=== PATIENT | male | born 1980 | race Caucasian/White ===

== ENCOUNTER 2016-12-02 08:56 | Emergency (ER) | payer SELFPAY ==
[2016-12-02] MEDS ORDERED: Ketorolac INJ* 60 MG/2 ML VIAL IM ONE (09:43)
[2016-12-02] MEDS ORDERED: Dexamethasone IV* 4 MG/ML 1 ML (4 MG) IM ONE (09:43)
[2016-12-02] MEDS ORDERED: oxyCODONE/Acetamin 5/325 MG* TAB PO ONE (09:45)
--- NOTE | 2016-12-02 09:47 | ED ---
Back Pain - HPI Summary HPI Summary: 36 male presents with complaints of lower back pain that is worse on the right side and began this morning upon waking up, 12/02/16. Patient states he has chronic back pain that he has suffered from for the past 15 years due to a back injury. States he had 3 slipped discs of L4,L5 and S1 15 years ago. Since then he deal with back pain that typically is about a 4-5/10. However after straining his back, working with heavy equipment yesterday he woke up with pain that is about a 8/10. Patient has not taken any medication at home for this pain. He does not like taking pain medication. Denies abdominal pain, numbness/ tingling, loss of ROM, saddle anesthesia, bladder/bowel incontinence and urinary symptoms. Describes the pain as sharp and shooting that worsens with specific movements. Sitting and having legs towards chest helps the pain. Pain radiates down right leg at times, he does although have chronic radiation of pain down right leg. Denies chest pain and difficulty breathing. No PMHx. Is able to bear weight and is able to walk slowly. No recent trauma or injury besides straining yesterday and previous injury 15 years ago. - History of Current Complaint Chief Complaint: EDBackInjuryPain Stated Complaint: BACK PAIN Time Seen by Provider: 12/02/16 09:16 Hx Obtained From: Patient Onset/Duration: Sudden Onset, Lasting Hours, Worse Since Onset/Duration: Started Hours Ago, Traumatic - straining himself at work, acute increasing pain on top of chronic pain Timing: Constant, Intermittent - with worsening pain with movement Back Pain Location: Is Discrete @ - L4-S1 region Severity Initially: Mild Severity Currently: Moderate Pain Intensity: 9 Pain Scale Used: 0-10 Numeric Character: Sharp, Aching, Spasmodic, Stiffness Aggravating Symptom(s): Movement, Lifting, Walking Alleviating Symptom(s): Rest, Position Associated Signs And Symptoms: Negative: Swelling, Redness, Bruising, Weakness, Numbness, Tingling, Bladder Incontinence, Bowel Incontinence - Risk Factors AAA Risk Factors: Negative TAD Risk Factors: Negative Cauda Equina Risk Factors: Negative Epidural Abscess Risk Factors: Negative - Allergies/Home Medications Allergies/Adverse Reactions: Allergies Allergy/AdvReac Type Severity Reaction Status Date / Time No Known Allergies Allergy Verified 12/02/16 09:03 PMH/Surg Hx/FS Hx/Imm Hx Endocrine/Hematology History: Denies: Hx Diabetes, Hx Thyroid Disease Cardiovascular History: Denies: Hx Hypertension Respiratory History: Denies: Hx Asthma, Hx Chronic Obstructive Pulmonary Disease (COPD) GI History: Denies: Hx Ulcer Musculoskeletal History: Reports: Hx Back Problems - Surgical History Surgery Procedure, Year, and Place: LEFT KNEE SURGERY - Immunization History Immunizations Up to Date: Yes Infectious Disease History: No Infectious Disease History: Denies: Hx Hepatitis, Hx Human Immunodeficiency Virus (HIV), Traveled Outside the [place] in Last 30 Days - Family History Known Family History: Positive: None - Social History Alcohol Use: None Substance Use Type: Reports: Marijuana Substance Use Comment - Amount & Last Used: "every now and then" Smoking Status (MU): Current Every Day Smoker Type: Cigarettes Amount Used/How Often: 1 PPD Review of Systems Constitutional: Negative Cardiovascular: Negative Respiratory: Negative Gastrointestinal: Negative Genitourinary: Negative Positive: Arthralgia, Myalgia - lower back Skin: Negative Neurological: Negative Psychological: Normal All Other Systems Reviewed And Are Negative: Yes Physical Exam Triage Information Reviewed: Yes Vital Signs On Initial Exam: Initial Vitals Temp Pulse Resp BP Pulse Ox 97.6 F 86 17 150/84 99 12/02/16 08:57 12/02/16 08:57 12/02/16 08:57 12/02/16 08:57 12/02/16 08:57 recommend follow up with PCP for HTN to be re-checked, although patient is currently experiencing pain. Vital Signs Reviewed: Yes Appearance: Positive: Well-Appearing, Well-Nourished, Pain Distress - mild, laying in stretcher Skin: Positive: Warm, Skin Color Reflects Adequate Perfusion, Dry, Other - no erythema, edema, obvious deformity or ecchymosis. no step off or crepitus Head/Face: Positive: Normal Head/Face Inspection Eyes: Positive: Conjunctiva Clear ENT: Positive: Normal ENT inspection, Hearing grossly normal Neck: Positive: Supple, Nontender Respiratory/Lung Sounds: Positive: Clear to Auscultation, Breath Sounds Present Cardiovascular: Positive: Normal, RRR, Pulses are Symmetrical in both Upper and Lower Extremities - 2+ pedal bilateral. Negative: Leg Edema Left, Leg Edema Right Abdomen Description: Positive: Nontender, No Organomegaly, Soft. Negative: Bruit, CVA Tenderness (R), CVA Tenderness (L) Bowel Sounds: Positive: Present Musculoskeletal: Positive: Normal, Strength/ROM Intact - however causes pain, right LE more than left. sensation and skin intact. ROM intact although he has to move slowly and it does cause him pain, Pain @ - on palpation of L4-S1 of spine. Negative: Interruption @, Marcellus Sign Left, Edema Left, Edema Right Neurological: Positive: Normal, Sensory/Motor Intact - sensation intact, Alert, Oriented to Person Place, Time, CN Intact II-III, Reflexes Intact, NV Bundle Intact Distally, Normal Gait - walks slowly, Facial Symmetry, Speech Normal Psychiatric: Positive: Normal Diagnostics - Vital Signs Vital Signs Temp Pulse Resp BP Pulse Ox 12/02/16 09:01 97.6 F 89 17 150/84 99 12/02/16 08:57 97.6 F 86 17 150/84 99 - Laboratory Lab Statement: Any lab studies that have been ordered have been reviewed, and results considered in the medical decision making process. - Radiology lumbarsacral spine Xray Interpretation: No Acute Changes - The vertebral bodies appear normal in height. No fracture is noted. Disc spaces all well-preserved. Pedicles appear intact. Radiology Interpretation Completed By: Radiologist Re-Evaluation - Re-Evaluation First Eval Re-Evaluation Time: 11:05 Change: Improved - patient feeling better, agrees with plan and ready to be d/c Back Pain Course/Dx - Course Course Of Treatment: x-ray obtained and negative. due to pt PE findings and history no concern for cauda equina, epidural abscess or AAA at this time. dexamethasone and toradol IM given in ED. felt better. sent home with oral pain management although patient states he does not take them often. prescribed ibuprofen, muscle relaxer and short course prednisone to take at home. heat/ice , rest and follow up. follow up with pcp for HTN. - Diagnoses Differential Diagnosis/HQI/PQRI: Positive: Arthritis, Cauda Equina Syndrome, Fracture, Herniated Disc, Strain, Sprain Provider Diagnoses: Strain, lumbosacral, Chronic back pain Discharge - Discharge Plan Condition: Stable Disposition: HOME Prescriptions: Cyclobenzaprine TAB* [Flexeril 10 MG TAB*] 10 mg PO BID PRN #30 tab PRN Reason: Spasms Ibuprofen TAB* [Motrin TAB* 800 MG] 800 mg PO Q6H PRN #50 tab PRN Reason: Pain predniSONE TAB* [Deltasone TAB*] 20 mg PO DAILY #2 tab Patient Education Materials: Low Back Strain (ED), Lower Back Exercises (ED) Forms: *Gen. Provider Communication Referrals: Mick Ambrose MD [Primary Care Provider] - Additional Instructions: Take prescribed medication as directed to help with pain and inflammation. Take medication with food. Do not drive while taking muscle relaxer or narcotics. Heat your back several times daily. Rest and refrain from strenuous activity. Use pain as your guide. If your symptoms worsen, do not improve or new symptoms develop please seek medical attention. Follow up with your primary care provider. Recommend seeing previous doctor to receive injections. If your symptoms worsen such as loss of bladder/bowel control, numbness and tingling in lower legs or in between thighs, weakness of LE or increasing pain please seek medical attention immediately.
--- NOTE | 2016-12-02 10:22 | RAD ---
Indication: Back pain. 5 views of lumbar spine reviewed. The vertebral bodies appear normal in height. No fracture is noted. Disc spaces all well-preserved. Pedicles appear intact. IMPRESSION: No fracture of the lumbar spine is present.
[2016-12-02] MEDS ORDERED: Dexamethasone IV* 4 MG/ML 1 ML (4 MG) ONE (10:36)
[2016-12-02 11:10] VITALS: BP 113/64
== END 2016-12-02 11:08 | disposition home or self-care (01) ==
LOC: ED 08:56
DX: S39.012A Strain of muscle, fascia and tendon of lower back, initial encounter (principal); G89.29 Other chronic pain; F17.210 Nicotine dependence, cigarettes, uncomplicated; I10 Essential (primary) hypertension; X58.XXXA Exposure to other specified factors, initial encounter; Y92.9 Unspecified place or not applicable
CPT/HCPCS: 72110; 99282; A9270-GY; J1100; J1885

== ENCOUNTER 2017-03-16 10:39 | Emergency (ER) | payer SELFPAY ==
[2017-03-16] MEDS ORDERED: Acetaminop/Codeine 30 MG TAB* 1 TAB (300 MG/30 MG) PO ONE (11:53)
[2017-03-16] MEDS ORDERED: Ibuprofen TAB* 600 MG PO ONE (11:55)
--- NOTE | 2017-03-16 13:05 | ED ---
Skin Complaint - HPI Summary HPI Summary: Patient presents with "lump" to the right upper groin area just inferior to the inguinal canal. The lump has been present for 1 year, but has never had pain until 2 days ago. Now presenting with pain. No discoloration. On palpation, there is a 2x2 mass which is exquisitely painful on palpation. The pain does not radiate and he denies N/V/C/D. - History of Current Complaint Chief Complaint: EDGeneral Time Seen by Provider: 03/16/17 10:50 Stated Complaint: RT LEG/GROIN PAIN Hx Obtained From: Patient Onset/Duration: Started Hours Ago Skin Exposure Onset/Duration: Hours Ago Timing: Constant Onset Severity: Moderate Current Severity: Moderate Pain Intensity: 10 Pain Scale Used: 0-10 Numeric Skin Location: Leg Aggravating Symptom(s): Nothing Alleviating Symptom(s): Nothing Associated Signs & Symptoms: Negative Related History: Trauma - Allergy/Home Medications Allergies/Adverse Reactions: Allergies Allergy/AdvReac Type Severity Reaction Status Date / Time No Known Allergies Allergy Verified 12/02/16 09:03 PMH/Surg Hx/FS Hx/Imm Hx Previously Healthy: Yes Endocrine/Hematology History: Denies: Hx Diabetes, Hx Thyroid Disease Cardiovascular History: Denies: Hx Hypertension Respiratory History: Denies: Hx Asthma, Hx Chronic Obstructive Pulmonary Disease (COPD) GI History: Denies: Hx Ulcer Musculoskeletal History: Reports: Hx Back Problems - Surgical History Surgery Procedure, Year, and Place: LEFT KNEE SURGERY - Immunization History Hx Pertussis Vaccination: No Immunizations Up to Date: Unable to Obtain/Confirm Infectious Disease History: Denies: Hx Hepatitis, Hx Human Immunodeficiency Virus (HIV), Traveled Outside the in Last 30 Days - Family History Known Family History: Positive: None - Social History Occupation: Employed Full-time Lives: With Family Alcohol Use: None Hx Substance Use: Yes Substance Use Type: Reports: Marijuana Substance Use Comment - Amount & Last Used: "every now and then" Smoking Status (MU): Current Every Day Smoker Type: Cigarettes Amount Used/How Often: 1 PPD Review of Systems Constitutional: Negative Eyes: Negative Cardiovascular: Negative Respiratory: Negative Gastrointestinal: Negative Positive: no symptoms reported, see HPI Positive: Other - palpable mass to the inferior right groin with pain Neurological: Negative Psychological: Normal All Other Systems Reviewed And Are Negative: Yes Physical Exam Triage Information Reviewed: Yes Vital Signs On Initial Exam: Initial Vitals Temp Pulse Resp BP Pulse Ox 98.6 F 77 18 125/65 97 03/16/17 10:43 03/16/17 10:43 03/16/17 10:43 03/16/17 10:43 03/16/17 10:43 Vital Signs Reviewed: Yes Appearance: Positive: Well-Appearing, Well-Nourished Skin: Positive: Warm, Skin Color Reflects Adequate Perfusion, Other - palpable mass to the inferior right groin with pain Head/Face: Positive: Normal Head/Face Inspection Eyes: Positive: Normal, EOMI, TIMBO, Conjunctiva Clear Neck: Positive: Supple, Nontender, No Lymphadenopathy Respiratory/Lung Sounds: Positive: Clear to Auscultation, Breath Sounds Present Cardiovascular: Positive: Normal, RRR, Pulses are Symmetrical in both Upper and Lower Extremities Musculoskeletal: Positive: Normal, Strength/ROM Intact Neurological: Positive: Sensory/Motor Intact, Alert, Oriented to Person Place, Time Psychiatric: Positive: Normal Diagnostics - Vital Signs Vital Signs Temp Pulse Resp BP Pulse Ox 03/16/17 10:43 98.6 F 77 18 125/65 97 - Laboratory Lab Statement: Any lab studies that have been ordered have been reviewed, and results considered in the medical decision making process. Course/Dx - Course Course Of Treatment: palpable mass to the inferior right groin with pain x 1 year without any pain until 2 days ago. US shows: differentiating from tissue collection or old blood products from a hematoma. Patient encouraged warm compresses and referrals for surgery given. - Differential Diagnoses - Skin Complaint Differential Diagnoses: Other - mass, inguinal hernia, hematoma, soft tissue, lipoma - Diagnoses Provider Diagnoses: Soft tissue mass Discharge - Discharge Plan Condition: Stable Disposition: HOME Patient Education Materials: Soft Tissue Mass (ED) Referrals: Ag Villareal MD [Medical Doctor] - Mick Ambrose MD [Primary Care Provider] - Salomon Cruz MD [Medical Doctor] - Additional Instructions: Follow up with surgery as soon as possible Ibuprofen 600mg three times daily Warm compresses to the area daily Images - Images Full Body (No Head): 1 - palpable mass
--- NOTE | 2017-03-16 13:35 | RAD ---
INDICATION: Right thigh "lump" and became painful after a child jumped on his leg COMPARISON: None TECHNIQUE: Real time ultrasound images of the right anterior thigh were acquired with hawk scale and Doppler color flow imaging. FINDINGS: Overlying the musculature of the right thigh subcutaneous tissue there is a heterogeneous structure measuring 4.8 cm in the cephalocaudal projection and 1.6 x 3.5 cm in the axial plane. There is a small amount of vascularity around the periphery. IMPRESSION: Heterogeneous subcutaneous collection with peripheral vascularity corresponding to the patient's painful and palpable lump. Differential includes soft tissue mass or old blood products from hematoma.
[2017-03-16 14:15] VITALS: BP 133/75
== END 2017-03-16 14:15 | disposition home or self-care (01) ==
LOC: ED 10:39
DX: R22.41 Localized swelling, mass and lump, right lower limb (principal); M79.651 Pain in right thigh; F17.210 Nicotine dependence, cigarettes, uncomplicated
CPT/HCPCS: 99281; A9270-GY

== ENCOUNTER 2017-04-28 13:27 | Emergency (ER) | payer MEDICAID, OTHER ==
[2017-04-28] MEDS ORDERED: predniSONE TAB* 20 MG PO ONE (13:53)
[2017-04-28] MEDS ORDERED: Albuterol/Ipratropium NEB.SOL* Albuterol 2.5 MG/Ipratropium 0.5 MG 3 ML INH ONE (13:53)
[2017-04-28 15:09] VITALS: BP 129/67
--- NOTE | 2017-05-03 12:00 | ED ---
More Engle Alfonso, scribed for Donald Weiss MD on 04/28/17 at 1351 . Complex/Multi-Sys Presentation - HPI Summary HPI Summary: This patient is a 37 year old M presenting to [facility] with a chief complaint of dyspnea since 0800 this morning. He states he was cleaning black mold earlier today but was wearing a mask good for mold. The patient rates the pain 0/10 in severity. Symptoms alleviated by nothing. Patient reports SOB, and productive cough (hawk phlegm), and mid sternal CP. Patient denies fever, chills , and diaphoresis. Tobacco abuse disorder. - History Of Current Complaint Chief Complaint: EDShortnessOfBreath Time Seen by Provider: 04/28/17 13:46 Hx Obtained From: Patient Onset/Duration: Sudden Onset, Lasting Hours - 0800 this morning, Still Present Timing: Constant Severity Currently: Moderate Severity Initially: Moderate Alleviating Factor(s): Nothing Associated Signs And Symptoms: Positive: Other - SOB, and productive cough ( hawk phlegm), and mid sternal CP. Patient denies fever, chills, and diaphoresis - Allergies/Home Medications Allergies/Adverse Reactions: Allergies Allergy/AdvReac Type Severity Reaction Status Date / Time No Known Allergies Allergy Verified 03/24/17 12:47 PMH/Surg Hx/FS Hx/Imm Hx Endocrine/Hematology History: Denies: Hx Diabetes, Hx Thyroid Disease Cardiovascular History: Denies: Hx Hypertension, Hx Pacemaker/ICD Respiratory History: Denies: Hx Asthma, Hx Chronic Obstructive Pulmonary Disease (COPD) GI History: Denies: Hx Ulcer History: Denies: Hx Renal Disease Musculoskeletal History: Reports: Hx Back Problems Sensory History: Denies: Hx Hearing Aid Psychiatric History: Denies: Hx Panic Disorder - Surgical History Surgery Procedure, Year, and Place: LEFT KNEE SURGERY Infectious Disease History: Denies: Hx Hepatitis, Hx Human Immunodeficiency Virus (HIV), Traveled Outside the [place] in Last 30 Days - Family History Known Family History: Positive: Cardiac Disease - Social History Alcohol Use: None Hx Substance Use: Yes Substance Use Type: Reports: Marijuana Substance Use Comment - Amount & Last Used: "every now and then" Smoking Status (MU): Current Every Day Smoker Type: Cigarettes Amount Used/How Often: 1 PPD Review of Systems Negative: Fever, Chills, Skin Diaphoresis Negative: Erythema Negative: Sore Throat Positive: Chest Pain Positive: Shortness Of Breath, Cough, Other - dyspnea Negative: Abdominal Pain, Vomiting, Nausea Negative: dysuria, hematuria Negative: Myalgia, Edema Negative: Rash Neurological: Other - Negative dizziness. All Other Systems Reviewed And Are Negative: Yes Physical Exam Triage Information Reviewed: Yes Vital Signs On Initial Exam: Initial Vitals Temp Pulse Resp BP Pulse Ox 97.7 F 88 16 132/83 100 04/28/17 13:30 04/28/17 13:30 04/28/17 13:30 04/28/17 13:30 04/28/17 13:30 Vital Signs Reviewed: Yes Appearance: Positive: Well-Appearing, No Pain Distress, Well-Nourished Skin: Positive: Warm, Dry Head/Face: Positive: Normal Head/Face Inspection Eyes: Positive: Conjunctiva Clear ENT: Positive: Normal ENT inspection Neck: Positive: Other: - Musculoskeletal ROM normal neck. (-) JVD, (-) Stridor, (-) Tracheal deviation Lymph: (-) Cervical adenopathy Respiratory/Lung Sounds: Positive: Other - Effort normal. Diminished breath sounds. (-) Respiratory distress, (-) Wheezes, (-) Rales Cardiovascular: Positive: Other - Rhythm regular, rate normal, Heart sounds normal; Intact distal pulses; The pedal pulses are 2+ and symmetric. Radial pulses are 2+ and symmetric. (-) Murmur Abdomen Description: Positive: Other: - Soft, (-) Tenderness, (-) Distension, (- ) Guarding, (-) Rebound Musculoskeletal: Negative: Edema Left, Edema Right Neurological: Positive: Alert, Oriented to Person Place, Time Psychiatric: Positive: Affect/Mood Appropriate Diagnostics - Vital Signs Vital Signs Temp Pulse Resp BP Pulse Ox 04/28/17 13:30 97.7 F 88 16 132/83 100 - Laboratory Lab Statement: Any lab studies that have been ordered have been reviewed, and results considered in the medical decision making process. Re-Evaluation - Re-Evaluation First Eval Re-Evaluation Time: 14:45 Change: Improved Comment: Patient reports his SOB and chest pressure have resolved with treatment. Complex Multi-Symp Course/Dx Assessment/Plan: This patient is a 37 year old M presenting to [facility] with a chief complaint of dyspnea since 0800 this morning. He states he was cleaning black mold earlier today but was wearing a mask good for mold. The patient rates the pain 0/10 in severity. Symptoms alleviated by nothing. Patient reports SOB, and productive cough (hawk phlegm), and mid sternal CP. Patient denies fever, chills, and diaphoresis. Tobacco abuse disorder. In the ED course the patient was given Duoneb and prednisone. Patient reports his SOB and chest pressure have resolved with treatment. Patient will be _discharged with follow up from PCP. The patient is agreeable with this plan. - Diagnoses Provider Diagnoses: Bronchitis Discharge - Discharge Plan Condition: Stable Disposition: HOME Patient Education Materials: Acute Bronchitis (ED) Forms: *Work Release Referrals: Mick Ambrose MD [Primary Care Provider] - Additional Instructions: RETURN TO THE EMERGENCY DEPARTMENT FOR CHANGING OR WORSENING SYMPTOMS. The documentation as recorded by the More lundy Alfonso accurately reflects the service I personally performed and the decisions made by Abhishek scott Jerry, MD.
== END 2017-04-28 15:10 | disposition home or self-care (01) ==
LOC: ED 13:27
DX: J40 Bronchitis, not specified as acute or chronic (principal); F17.210 Nicotine dependence, cigarettes, uncomplicated
CPT/HCPCS: 94640; 99281; A9270-GY; J7512

== ENCOUNTER 2017-04-30 07:46 | Emergency (ER) | payer OTHER ==
[2017-04-30] MEDS ORDERED: NS 0.9% 1000 ML* 1,000 ML IV ONE (09:13)
[2017-04-30] MEDS ORDERED: methylPREDNISolone 125 MG* 2 ML VIAL IV ONE (09:13)
[2017-04-30] MEDS ORDERED: Albuterol 2.5 MG/3 ML NEB.SOL* (0.083%) INH ONE (09:13)
[2017-04-30 09:49] LABS: Hematocrit 39 % (42-52); Hemoglobin 13.2 g/dl (14.0-18.0); Mean Corpuscular HGB Conc 34 g/dl (31-36); Mean Corpuscular Hemoglobin 30 pg (27-31); Mean Corpuscular Volume 88 fL (80-94); Mean Platelet Volume 9 um3 (7.4-10.4); Red Blood Count 4.46 10^6/ul (4.0-5.4); Red Cell Distribution Width 14 % (10.5-15); White Blood Count 7.5 10^3/ul (3.5-10.8)
[2017-04-30 10:06] LABS: BUN/Creatinine Ratio 11.6 (8-20); C Reactive Protein 1.57 mg/L (< 5.00); Calcium 8.8 mg/dL (8.6-10.3); EGFR African American 115.4 (>60); EGFR Non-African American 89.7 (>60); Globulin 2.7 g/dL (2-4); Potassium 3.9 mmol/L (3.5-5.0); Total Bilirubin 0.4 mg/dL (0.2-1.0); Total Protein 6.7 g/dL (6.4-8.9)
--- NOTE | 2017-04-30 10:07 | RAD ---
INDICATION: Shortness of breath, chest pain and cough. COMPARISON: Comparison is made with a prior chest x-ray study from [place] [id number] 2011. TECHNIQUE: Dual-energy PA and lateral views of the chest were obtained. FINDINGS: The heart is within normal limits in size. Mediastinal and hilar contours appear within normal limits. The lungs are clear. No pleural effusion is present. IMPRESSION: NO EVIDENCE FOR ACTIVE CARDIOPULMONARY DISEASE.
[2017-04-30 11:49] LABS: Urine Bacteria Absent (Absent); Urine Bilirubin Negative (Negative); Urine Glucose Negative (Negative); Urine Nitrite Negative (Negative)
[2017-04-30 13:00] VITALS: BP 120/63
--- NOTE | 2017-04-30 13:46 | ED ---
More Engle Alfonso, scribed for Marie Neff MD on 04/30/17 at 0849 . Shortness of Breath - HPI Summary HPI Summary: This patient is a 37 year old M presenting to [facility] with a chief complaint of SOB since two days ago. The SOB is worse since this morning. He reports a diagnosis of bronchitis two days ago 04/28/17 in the ED for which he was prescribed prednisone and an inhaler, after being treated with a duoneb and prednisone in the ED. He states he is using his inhaler. Has contintued exposure to the black mold, but wears a mask. Symptoms aggravated by exertion. Symptoms alleviated by nothing. Patient reports dizziness, nonproductive cough, CP (tightness pain 4/10). Patient denies fever. Tobacco abuse disorder. 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 - History of Current Complaint Chief Complaint: EDShortnessOfBreath Hx Obtained From: Patient, Medical Records Onset/Duration: Sudden Onset, Lasting Days - 2, Worse Since - today Timing: Constant Current Severity: Moderate Dyspnea At: Rest Aggrevating Factors: Allergens - black mold Alleviating Factors: Nothing Associated Signs & Symptoms: Cough (Nonproductive), Chest Pain w/Cough Related History: Similar Episode - 2 days ago, bronchitis - Risk Factors Pulmonary Embolism: Smoking Cardiac: Smoking Pseudomonas: Negative Tuberculosis: Smoking - Allergy/Home Medications Allergies/Adverse Reactions: Allergies Allergy/AdvReac Type Severity Reaction Status Date / Time No Known Allergies Allergy Verified 04/30/17 08:06 PMH/Surg Hx/FS Hx/Imm Hx Endocrine/Hematology History: Denies: Hx Diabetes, Hx Thyroid Disease Cardiovascular History: Denies: Hx Hypertension, Hx Pacemaker/ICD Respiratory History: Denies: Hx Asthma, Hx Chronic Obstructive Pulmonary Disease (COPD) GI History: Denies: Hx Ulcer History: Denies: Hx Renal Disease Musculoskeletal History: Reports: Hx Back Problems Sensory History: Denies: Hx Hearing Aid Psychiatric History: Denies: Hx Panic Disorder - Surgical History Surgery Procedure, Year, and Place: LEFT KNEE SURGERY Infectious Disease History: No Infectious Disease History: Denies: Hx Hepatitis, Hx Human Immunodeficiency Virus (HIV), Traveled Outside the [place] in Last 30 Days - Family History Known Family History: Positive: Cardiac Disease - [place] grandfather - Social History Occupation: Employed Full-time Alcohol Use: None Hx Substance Use: Yes Substance Use Type: Reports: Marijuana Substance Use Comment - Amount & Last Used: Pt states in Drug Core. Smoking Status (MU): Current Every Day Smoker Type: Cigarettes Amount Used/How Often: 1 PPD Review of Systems Negative: Fever Positive: Chest Pain Positive: Shortness Of Breath, Cough Gastrointestinal: Negative Neurological: Other - Dizziness, Psychological: Normal All Other Systems Reviewed And Are Negative: Yes Physical Exam Triage Information Reviewed: Yes Vital Signs On Initial Exam: Initial Vitals Temp Pulse Resp BP Pulse Ox 98.6 F 71 28 131/89 100 04/30/17 07:47 04/30/17 07:47 04/30/17 07:47 04/30/17 07:47 04/30/17 07:47 Vital Signs Reviewed: Yes Appearance: Positive: Well-Appearing, Well-Nourished, Pain Distress Skin: Positive: Warm, Skin Color Reflects Adequate Perfusion, Dry Head/Face: Positive: Normal Head/Face Inspection Eyes: Positive: Conjunctiva Clear ENT: Positive: Normal ENT inspection, Pharynx normal, TMs normal Neck: Positive: Supple, Nontender, No Lymphadenopathy Respiratory/Lung Sounds: Positive: Clear to Auscultation, Breath Sounds Present , Other - No respiratory distress Cardiovascular: Positive: RRR, Pulses are Symmetrical in both Upper and Lower Extremities, Other - no respiratory distress. Negative: Murmur Abdomen Description: Positive: Nontender, No Organomegaly, Soft Bowel Sounds: Positive: Present Musculoskeletal: Positive: Strength/ROM Intact, Other - no edema, no calf tenderness Neurological: Positive: Sensory/Motor Intact, Alert, Oriented to Person Place, Time, CN Intact II-III, Facial Symmetry, Speech Normal Psychiatric: Positive: Normal - Gerry Coma Scale Coma Scale Total: 15 Diagnostics - Vital Signs Vital Signs Temp Pulse Resp BP Pulse Ox 04/30/17 08:02 97.7 F 73 36 135/83 100 04/30/17 08:00 73 100 04/30/17 07:56 73 100 04/30/17 07:55 135/83 04/30/17 07:47 98.6 F 71 28 131/89 100 - Laboratory Result Diagrams: 04/30/17 09:34 04/30/17 09:34 Lab Statement: Any lab studies that have been ordered have been reviewed, and results considered in the medical decision making process. - Radiology CXR Radiology Interpretation Completed By: Radiologist - NO EVIDENCE FOR ACTIVE CARDIOPULMONARY DISEASE. ED physician has reviewed this radiology report and agrees. - EKG 1016 Cardiac Rate: NL - BPM 65 EKG Rhythm: Sinus Rhythm EKG Interpretation: Normal AV/IV conduction time. Normal QTC, axis. NAC. EKG Comparison: Other - No prior to compare Course/Dx - Course Assessment/Plan: This patient is a 37 year old M presenting to [facility] with a chief complaint of SOB since two days ago. The SOB is worse since this morning. He reports a diagnosis of bronchitis two days ago for which he was prescribed prednisone and an inhaler. Symptoms aggravated by exertion. Symptoms alleviated by nothing. Patient reports dizziness, nonproductive cough, CP (tightness pain 4 /10). Patient denies fever. Tobacco abuse disorder. 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 An EKG reveals NSR. Normal AV/IV conduction time. Normal QTC, axis. NAC. CXR reveals NO EVIDENCE FOR ACTIVE CARDIOPULMONARY DISEASE. ED physician has reviewed this radiology report and agrees. Pt has no calf pain or tenderness and a negative d dimer so no evidence of PE. He has continued exposure to black mold. Will add broad spectrum antibiotic to cover for possible bacterial exacerbation of bronchitis, since pt is a smoker. Advised pt to limit exposure to mold and to stop smoking. Patient will be discharged with prescription for Z-Matias and follow up from Dr. Ambrose (PCP). The patient is agreeable with this plan. - Diagnoses Differential Diagnosis/HQI/PQRI: Positive: Asthma, Bronchitis, COPD Exacerbation , Pneumonia, Pulmonary Embolism Provider Diagnoses: Acute bronchitis, Mold exposure, Tobacco abuse disorder Discharge - Discharge Plan Condition: Stable Disposition: HOME Prescriptions: Azithromycin TAB* [Zithromax TAB (Z-MATIAS) 250 mg #6 tabs] 2 tab PO .TODAY, THEN 1 DAILY #1 matias Patient Education Materials: Acute Bronchitis (ED) Forms: *Work Release Referrals: Mick Ambrose MD [Primary Care Provider] - 2 Days Additional Instructions: Your chest xray did not show pneumonia. You had an albuterol neb and solumedrol 125mg IV while you were in the ER. Start the azithromycin today. Return to the ER if you have any new or worsening symptoms. The documentation as recorded by the More lundy Alfonso accurately reflects the service I personally performed and the decisions made by Tawanda scott Barbara J, MD.
== END 2017-04-30 13:54 | disposition home or self-care (01) ==
LOC: ED 07:46
DX: J20.9 Acute bronchitis, unspecified (principal); Z77.120 Contact with and (suspected) exposure to mold (toxic); R07.9 Chest pain, unspecified; F17.210 Nicotine dependence, cigarettes, uncomplicated
CPT/HCPCS: 36415; 71020; 80053; 81003; 81015; 82550; 82553; 83605; 83880; 84484; 85025; 85379; 85610; 85730; 86140; 87040; 87086; 93005; 99283; J2930

== ENCOUNTER 2019-03-24 10:00 | Emergency (ER) | payer MEDICAID, OTHER ==
--- NOTE | 2019-03-24 10:06 | UC ---
Throat Pain/Nasal Hesham HPI - HPI Summary HPI Summary: 39 yo male presents with 5 days of sinus pain/pressure/congestion. Over the last 2 days he has been having a sinus headache and popping in his ears - feels off balance at times. He has been taking nyquill at bedtime with little relief. Denies fever, chills, sore throat, cough, SOB, chest pain. He smokes daily. - History of Current Complaint Stated Complaint: RIVAS/DIZZY/CONGESTION Time Seen by Provider: 03/24/19 10:06 Hx Obtained From: Patient Onset/Duration: Gradual Onset Severity: Moderate Pain Intensity: 5 Pain Scale Used: 0-10 Numeric - Allergies/Home Medications Allergies/Adverse Reactions: Allergies Allergy/AdvReac Type Severity Reaction Status Date / Time No Known Allergies Allergy Verified 03/24/19 10:15 PMH/Surg Hx/FS Hx/Imm Hx - Additional Past Medical History Additional PMH: Chronic pain - Surgical History Surgical History: Yes Surgery Procedure, Year, and Place: LEFT KNEE SURGERY - Family History Known Family History: Positive: Cardiac Disease - [place] grandfather - Social History Occupation: Employed Full-time Lives: With Family Alcohol Use: None Substance Use Type: Marijuana Substance Use Comment - Amount & Last Used: Pt states in Drug Core. Smoking Status (MU): Current Every Day Smoker Type: Cigarettes Amount Used/How Often: 1 PPD Review of Systems All Other Systems Reviewed And Are Negative: Yes Constitutional: Positive: Negative Skin: Positive: Negative Eyes: Positive: Negative ENT: Positive: Nasal Discharge, Sinus Congestion, Sinus Pain/Tenderness Respiratory: Positive: Negative Cardiovascular: Positive: Negative Gastrointestinal: Positive: Negative Neurovascular: Positive: Negative Musculoskeletal: Positive: Negative Neurological: Positive: Headache Psychological: Positive: Negative Physical Exam - Summary Physical Exam Summary: GENERAL: NAD. WDWN. No pain distress. SKIN: No rashes, sores, lesions, or open wounds. HEENT: Head: AT/NC Eyes: EOM intact. Conjunctiva clear without inflammation or discharge. Ears: Hearing grossly normal. TMs intact, no bulging, erythema, or edema. Clear fluid behind b/l TMs Nose: Nasal mucosa mildly swollen and erythematous without discharge. TTP maxillary and frontal sinus. Positive post nasal drip Throat: Posterior oropharynx without exudates, erythema, or tonsillar enlargement. Uvula midline. NECK: Supple. Nontender. No lymphadenopathy. CHEST: CTAB. No r/r/w. No accessory muscle use. Breathing comfortably and in no distress. CV: RRR. Without m/r/g. Pulses intact. NEURO: Alert. PSYCH: Age appropriate behavior. Triage Information Reviewed: Yes Vital Signs: Vital Signs: Temp Pulse Resp BP Pulse Ox 98.2 F 65 18 133/87 98 03/24/19 10:11 03/24/19 10:11 03/24/19 10:11 03/24/19 10:11 03/24/19 10:11 Vital Signs Reviewed: Yes Throat Pain/Nasal Course/Dx - Course Course Of Treatment: Sinusitis Discussed viral vs bacterial causes with the pt and he prefers to be on anbx at this time. He is also requesting a note to be out of work until Thursday. - Differential Dx/Diagnosis Provider Diagnosis: Sinusitis Discharge - Sign-Out/Discharge Documenting (check all that apply): Patient Departure All imaging exams completed and their final reports reviewed: No Studies - Discharge Plan Condition: Stable Disposition: HOME Patient Education Materials: Sinusitis (ED) Forms: *Work Release Referrals: Mick Ambrose MD [Primary Care Provider] - Additional Instructions: If you develop a fever, shortness of breath, chest pain, new or worsening symptoms - please call your PCP or go to the ED immediately. - Billing Disposition and Condition Condition: STABLE Disposition: Home - Attestation Statements Provider Attestation: I am administratively signing this document. I was available for consultation for this patient. I did not evaluate the patient, did not have a doctor/patient relationship with the patient, or participate in any medical decision making or disposition decisions unless I am specifically named in the chart as having consulted on the patient. If I have consulted on the patient, please see my own ED note on the patient encounter. Johnny Castillo MD
[2019-03-24 10:15] VITALS: BP 133/87
== END 2019-03-24 10:27 | disposition home or self-care (01) ==
LOC: UCEAST 10:00
DX: J32.9 Chronic sinusitis, unspecified (principal); F17.210 Nicotine dependence, cigarettes, uncomplicated
CPT/HCPCS: 99212; G0463